=== PATIENT | female | born 1995 | race Caucasian/White ===

== ENCOUNTER 2017-07-03 21:15 | Emergency (ER) | payer BC ==
[2017-07-03 21:34] VITALS: BP 103/85; PULSE 98; RESP 18; TEMP 99.1
[2017-07-03] MEDS ORDERED: DEXAMETHASONE 4 MG TAB PO ONE (21:56)
--- NOTE | 2017-07-03 21:56 | EDPHY ---
General - History Smoking Status: Never smoked Narrative: CHIEF COMPLAINT: Sore throat, sinus pressure, headache HISTORY OF PRESENT ILLNESS: Patient complains of 3-4 days of sore throat, headache, runny nose, congestion, cough, body aches. She has no fever. She has no abdominal pain. The symptoms are [id number]. They actually have started to improved today, but she is concerned she was having difficulty focusing and class due to the symptoms. She has attempted [id number] medications. She has no neck pain or stiffness. She has mild headache. She has no trauma or injury. No difficulty swallowing. No chest pain. No abdominal urinary complaints. No other associated complaints or modifying factors. REVIEW OF SYSTEMS: Ten systems reviewed and are negative unless otherwise noted in the HPI PAST MEDICAL HISTORY: Onychomycosis on current antifungal. Oral contraceptive pill PAST SURGICAL HISTORY: None SOCIAL HISTORY: Nonsmoker. [employer] student. FAMILY HISTORY: Noncontributory EXAMINATION General Appearance: Alert, no distress Head: normocephalic, atraumatic Eyes: Pupils equal and round, no conjunctival pallor or injection ENT, Mouth: Mucous membranes moist. Uvula midline. Minimal posterior erythema without edema or exudate. No trismus. Airway widely patent Neck: Normal inspection, supple, non-tender Respiratory: Lungs are clear to auscultation no wheezing, rhonchi or crackles Cardiovascular: Regular rate and rhythm. No murmur. Pulses intact distally Gastrointestinal: Abdomen is soft and nontender. No hepatosplenomegaly Back: non-tender, no bony abnormalities Neurological: A&O, nonfocal, normal gait Skin: Warm and dry, no rash. No petechiae or purpura Extremities: Nontender, no pedal edema Psychiatric: Mood and affect normal DIFFERENTIAL DIAGNOSES: Including but not limited to strep pharyngitis, viral pharyngitis, mono, upper respiratory infection, sinusitis, bronchitis MDM: 9:55 p.m. Multiple complaints consistent with a viral syndrome. She has sore throat, runny nose, sinus congestion and 1 episode of vomiting this morning. I suspect this is from postnasal drip. Her examination reveals mild pharyngitis without any exudate or evidence of strep pharyngitis. No tonsillitis. Rapid strep test was ordered prior to my examination and I feel this will be negative. I have ordered 1 dose of Decadron and suspect that will treat her symptomatically. 10:10 p.m. Strep test negative. Suspect viral syndrome. Treated with Decadron here. Continue [id number]-uaf-[id number] medications as discussed. Follow up on PCR testing tomorrow. Follow up with primary care physician. ED precautions discussed. She is comfortable this plan and discharged home stable condition. (Jake Clark) Medical Decision Making: I did not see this patient while she was in the emergency department. However her care was discussed with the PA while the patient was in the department. I agree with treatment plan and management (Rudy Navarro) - Objective Vital Signs: Initial Vital Signs Temperature (C) 99.1 F 07/03/17 21:30 Heart Rate 98 07/03/17 21:30 Respiratory Rate 18 07/03/17 21:30 Blood Pressure 103/85 H 07/03/17 21:30 O2 Delivery Mode Nasal Cannula Allergies/Adverse Reactions: Penicillins Allergy (Verified 07/03/17 21:29) Home Medications: Medication Instructions Recorded Acetaminophen/Codeine 300/30Mg 1 each PO Q6 PRN #13 tab 07/03/17 [Tylenol #3 (*)] Anti Fungual Cream 07/03/17 Control 07/03/17 Laboratory Results: 07/03/17 07/03/17 Unknown 21:30 Group A Strep Screen NEGATIVE (NEGATIVE) Group A Strep DNA Pending Medications Given: Discontinued Medications Acetaminophen/Codeine Phosphate (Tylenol #3) 1 tab PO EDNOW ONE Stop: 07/03/17 22:08 Last Admin: 07/03/17 22:18 Dose: 1 tab Dexamethasone (Decadron) 8 mg PO EDNOW ONE Stop: 07/03/17 21:57 Last Admin: 07/03/17 22:05 Dose: 8 mg Ibuprofen (Motrin) 600 mg PO EDNOW ONE Stop: 07/03/17 22:08 Last Admin: 07/03/17 22:08 Dose: 600 mg Departure - Departure Disposition: Home, Routine, Self-Care Clinical Impression: Acute pharyngitis Qualifiers: Pharyngitis/tonsillitis etiology: unspecified etiology Qualified Code(s): J02.9 - Acute pharyngitis, unspecified Sinusitis Qualifiers: Sinusitis location: frontal Chronicity: acute Recurrence: non-recurrent Qualified Code(s): J01.10 - Acute frontal sinusitis, unspecified Upper respiratory infection Qualifiers: URI type: unspecified viral URI Qualified Code(s): J06.9 - Acute upper respiratory infection, unspecified; B97.89 - Other viral agents as the cause of diseases classified elsewhere Condition: Good Instructions: Pharyngitis (ED), Viral Syndrome (ED) Additional Instructions: 1. Ibuprofen 600 mg every 8 hours or Aleve every 12 hours as needed 2. Mucinex 1200 mg twice daily 3. Pseudoephedrine [id number] as needed 4. Tylenol 3 as needed for cough or body aches 5. ED precautions as discussed Referrals: ADELINA BENÍTEZ [Other] - As per Instructions Stand Alone Forms: School Excuse Prescriptions: Acetaminophen/Codeine 300/30Mg [Tylenol #3 (*)] 1 each PO Q6 PRN #13 tab PRN Reason: Pain, Mild
[2017-07-03] MEDS ORDERED: ACETAMINOPHEN/CODEINE 300/30MG TAB PO ONE (22:07)
[2017-07-03] MEDS ORDERED: IBUPROFEN 600 MG TAB PO ONE (22:07)
== END 2017-07-03 22:20 | disposition home or self-care (01) ==
DX: J06.9 Acute upper respiratory infection, unspecified (principal); J01.10 Acute frontal sinusitis, unspecified; B97.89 Other viral agents as the cause of diseases classified elsewhere